=== PATIENT | male | born 1955 | race Caucasian/White ===

== ENCOUNTER 2017-02-18 13:50 | Day surgery (SDC) | payer OTHER ==
[~2017-02-18] VITALS: Ht 172.7 cm; Wt 71.7 kg
[~2017-02-18 13:50] MED LIST: BUTRANS1 EACH TD; COMPOUND PAIN CREAM TP; DILAUDID2 MG PO; MAXALT10 MG PO; MOBIC7.5 MG PO; ULTRAM50 MG PO
== END 2017-02-18 15:24 | disposition home or self-care (01) ==
LOC: PAIN 13:50 → SDC 14:15 → PAIN 15:24
DX: M47.816 Spondylosis without myelopathy or radiculopathy, lumbar region (principal); M54.5 Low back pain; G89.29 Other chronic pain; M47.814 Spondylosis without myelopathy or radiculopathy, thoracic region; M51.24 Other intervertebral disc displacement, thoracic region; Z79.891 Long term (current) use of opiate analgesic
CPT/HCPCS: J1030; J2250; J3010; S0020

== ENCOUNTER 2017-02-25 13:47 | Day surgery (SDC) | payer OTHER ==
[~2017-02-25] VITALS: Ht 172.7 cm; Wt 71.7 kg
== END 2017-02-25 15:53 | disposition home or self-care (01) ==
LOC: PAIN 13:47 → SDC 14:30 → PAIN 14:30
DX: M47.816 Spondylosis without myelopathy or radiculopathy, lumbar region (principal); G89.29 Other chronic pain; M54.5 Low back pain; M54.6 Pain in thoracic spine; M47.814 Spondylosis without myelopathy or radiculopathy, thoracic region; M51.24 Other intervertebral disc displacement, thoracic region; M79.1 Myalgia
CPT/HCPCS: J1030; J2250; J3010; S0020

== ENCOUNTER 2017-03-24 07:44 | Day surgery (SDC) | payer OTHER ==
[~2017-03-24] VITALS: Ht 172.7 cm; Wt 17.7 kg
== END 2017-03-24 09:33 | disposition home or self-care (01) ==
LOC: PAIN 07:44 → SDC 08:15 → PAIN 08:15
DX: M47.814 Spondylosis without myelopathy or radiculopathy, thoracic region (principal); M54.6 Pain in thoracic spine; G89.29 Other chronic pain; M47.816 Spondylosis without myelopathy or radiculopathy, lumbar region; Z79.891 Long term (current) use of opiate analgesic; M79.1 Myalgia
CPT/HCPCS: J1030; J2250; J3010; S0020

== ENCOUNTER 2017-03-31 07:28 | Day surgery (SDC) | payer OTHER ==
[~2017-03-31] VITALS: Ht 172.7 cm; Wt 71.7 kg
== END 2017-03-31 09:34 | disposition home or self-care (01) ==
LOC: PAIN 07:28 → SDC 08:00 → PAIN 09:34
DX: M47.814 Spondylosis without myelopathy or radiculopathy, thoracic region (principal); M51.24 Other intervertebral disc displacement, thoracic region; G89.29 Other chronic pain; M47.816 Spondylosis without myelopathy or radiculopathy, lumbar region; M79.1 Myalgia; Z79.891 Long term (current) use of opiate analgesic
CPT/HCPCS: J1030; J2250; J3010; S0020

== ENCOUNTER 2017-05-15 08:23 | Day surgery (SDC) | payer OTHER ==
[~2017-05-15] VITALS: Ht 172.7 cm; Wt 72.1 kg
[~2017-05-15 08:23] MED LIST changes: +LIDOPRIL XR 2.1 EACH TP
== END 2017-05-15 10:05 | disposition home or self-care (01) ==
LOC: PAIN 08:23 → SDC 09:00 → PAIN 09:00
PROC: BR151ZZ Fluoroscopy of Thoracic Facet Joint(s) using Low Osmolar Contrast (ICD-10-PCS; principal; 2017-05-15)
PROC: 3E0T3TZ Introduction of Destructive Agent into Peripheral Nerves and Plexi, Percutaneous Approach (ICD-10-PCS; principal; 2017-05-15)
DX: M47.814 Spondylosis without myelopathy or radiculopathy, thoracic region (principal); G89.29 Other chronic pain; M51.24 Other intervertebral disc displacement, thoracic region; M47.816 Spondylosis without myelopathy or radiculopathy, lumbar region; N40.0 Benign prostatic hyperplasia without lower urinary tract symptoms; M79.1 Myalgia; Z79.891 Long term (current) use of opiate analgesic
CPT/HCPCS: J1030; J2250; J3010; S0020

== ENCOUNTER 2017-05-22 14:25 | Day surgery (SDC) | payer OTHER ==
[~2017-05-22] VITALS: Ht 172.7 cm; Wt 72.1 kg
== END 2017-05-22 15:30 | disposition home or self-care (01) ==
LOC: PAIN 14:25 → SDC 15:00 → PAIN 15:00
DX: M47.814 Spondylosis without myelopathy or radiculopathy, thoracic region (principal); G89.29 Other chronic pain; M51.24 Other intervertebral disc displacement, thoracic region; M47.816 Spondylosis without myelopathy or radiculopathy, lumbar region; N40.0 Benign prostatic hyperplasia without lower urinary tract symptoms; M79.1 Myalgia; Z79.891 Long term (current) use of opiate analgesic
CPT/HCPCS: J1030; J2250; J3010; S0020